=== PATIENT | female | born 1955 | race Caucasian/White ===

== ENCOUNTER 2017-02-24 17:31 | Emergency (ER) | payer OTHER ==
[~2017-02-24] VITALS: Ht 165.1 cm; Wt 57.0 kg
[~2017-02-24 17:31] MED LIST: HYDR-762 PO; LEVO50TA71 PO
[2017-02-24 17:40] VITALS: Ht 165.1 cm; Wt 57.0 kg
[2017-02-24] MEDS ORDERED: BELLADONNA/PHENOBARBITAL TAB PO STA (20:05)
[2017-02-24] MEDS ORDERED: ONDANSETRON 4 MG INJ IV STA (20:05)
[2017-02-24] MEDS ORDERED: FAMOTIDINE 20 MG TAB PO STA (20:05)
[2017-02-24] MEDS ORDERED: SOD CHLORIDE 0.9% 1,000 ML IV STA (20:05)
[2017-02-24] MEDS ORDERED: LIDOCAINE/MYLANTA 40 ML BTL PO STA (20:05)
[2017-02-24 20:32] LABS: ALBUMIN 4.4 g/dl (3.3-4.9); ALBUMIN/GLOBULIN RATIO 1.25; BILIRUBIN,INDIRECT 1.5 mg/dl (0-1.1); BILIRUBIN,TOTAL 1.5 mg/dl (0.2-1.3); CALCIUM 9.9 mg/dl (8.4-10.2); CREATININE 0.81 mg/dl (0.44-1.00); POTASSIUM 4.5 mmol/L (3.5-5.1); TOTAL PROTEIN 7.9 g/dl (6.1-8.1)
[2017-02-24 20:45] LABS: ADD UMIC YES; UR ASCORBIC ACID NEGATIVE (NEGATIVE); UR BILIRUBIN (Dip) NEGATIVE (NEGATIVE); UR BLOOD (Dip) 2+ mg/dL (NEGATIVE); UR CLARITY CLEAR (CLEAR); UR COLOR YELLOW (YELLOW); UR GLUCOSE (Dip) NEGATIVE (NEGATIVE); UR KETONES (Dip) 1+ mg/dL (NEGATIVE); UR LEUKOCYTE ESTERASE (Dip) NEGATIVE Leu/ul (NEGATIVE); UR MUCUS FEW /HPF (NONE SEEN); UR NITRITE (Dip) NEGATIVE (NEGATIVE); UR RBC 26 /HPF (0-5); UR SPECIFIC GRAVITY (Dip) 1.024 (1.003-1.030); UR TOTAL PROTEIN (Dip) NEGATIVE (NEGATIVE); UR UROBILINOGEN (Dip) 1+ mg/dL (NEGATIVE)
[2017-02-24 20:46] LABS: HEMATOCRIT 45.2 % (37.0-47.0); MEAN CORPUSCULAR HEMOGLOBIN 29.9 pg (29.0-33.0); MEAN CORPUSCULAR HGB CONC 33.2 g/dl (32.0-37.0); MEAN CORPUSCULAR VOLUME 90.2 fl (82.0-101.0); MEAN PLATELET VOLUME 9.4 fl (7.4-10.4); PLATELET COUNT 181 10^3/UL (140-415); RED BLOOD COUNT 5.01 10^6/ul (4.20-5.40); RED CELL DISTRIBUTION WIDTH 12.3 % (11.5-14.5); WHITE BLOOD COUNT 10.7 10^3/ul (4.8-10.8)
[2017-02-24 20:47] LABS: POSITIVE DIFF @See below
[2017-02-24] MEDS ORDERED: ONDA4TAB8 PO (20:55)
[2017-02-24] MEDS ORDERED: MAG355OR14 PO (20:55)
[2017-02-24 21:45] LABS: PLATELET ESTIMATE NORMAL
[2017-02-24 21:51] VITALS: BP 158/97; PULSE 98; RESP 16
--- NOTE | 2017-02-24 23:23 | ERD ---
ER Documentation Chief Complaint Chief Complaint Complains of vomiting and abdominal pain x 3 days HPI 61-year-old woman presents with abdominal cramping and a few episodes of clear nonbloody nonbilious emesis and nausea 2 days, symptoms began shortly after eating chocolate cake which she states was left outside and poorly stored. She states she also had one episode of loose stool without blood or mucus. She states the abdominal pain has improved although she remains nauseous. She denies fevers or chills, no anorexia, no chest pain or shortness of breath, no dysuria. ROS All systems reviewed and are negative except as per history of present illness. Medications Home Meds Active Scripts Mag Hydrox/Al Hydrox/Simeth (Maalox Advanced Suspension) 355 Ml Oral.susp, 2 TSP PO TID for PAIN AND/OR INFLAMMATION, #24 OZ Prov:KEVIN HERNANDEZ MD 02/24/17 Ondansetron Hcl* (Zofran*) 4 Mg Tablet, 4 MG PO Q8H Y for NAUSEA AND/OR VOMITING , #15 TAB Prov:KEVIN HERNANDEZ MD 02/24/17 Hydrocodone Bit-Acetaminophen* (Garland*) 10-325 Mg Tablet, 1 TAB PO Q6 Y for PAIN , #20 TAB Prov:COLLIN HAGEN 10/05/15 Reported Medications Levothyroxine Sodium* (Levoxyl*) 50 Mcg Tablet, 50 MCG PO BEFORE BREAKFAST, #30 TAB 10/05/15 Allergies Allergies: Coded Allergies: No Known Drug Allergies (Verified Allergy, Unknown, 10/05/15) PMhx/Soc Hypothyroidism History of Surgery: Yes (ankle sx 2015) Anesthesia Reaction: No Hx Neurological Disorder: No Hx Respiratory Disorders: No Hx Cardiac Disorders: No Hx Psychiatric Problems: No Hx Miscellaneous Medical Probl: Yes (hypothyroid) Hx Alcohol Use: No Hx Substance Use: No Hx Tobacco Use: No Smoking Status: Never smoker FmHx Family History: No diabetes Physical Exam Vitals Vital Signs Date Time Temp Pulse Resp B/P Pulse Ox O2 Delivery O2 Flow Rate FiO2 02/24/17 21:51 98 16 158/97 98 Room Air 02/24/17 17:40 99.5 92 20 164/95 95 Physical Exam GENERAL: Well-developed, well-nourished, well-hydrated, in no apparent distress , looks nontoxic in appearance HEENT: Moist mucous membranes, pink conjunctiva, no cervical spine tenderness or step-off deformities, no goiter, no jaundice or icterus, extraocular movements intact without pain. No submandibular induration, and no pharyngeal erythema NEURO: Alert and oriented 3, cranial nerves II through XII intact bilaterally, pupils equal round reactive to light, no focal deficits or facial asymmetry, sensation intact distally Strength 5/5 in upper and lower extremities bilaterally CARDIAC: Regular rate and rhythm, no murmurs rubs or gallops LUNGS: Clear bilaterally no wheezing crackles or stridor ABDOMEN: Soft nontender, no guarding, no rigidity, no rebound, no psoas sign no obturator sign. Normoactive bowel sounds SKIN: Warm and dry to touch, no abrasions, contusions, or hematomas, no lacerations, no ecchymosis, no target lesions, and without ulcers EXTREMITIES: No clubbing cyanosis or edema, calves are bilaterally symmetrical, no Homans sign, no popliteal cord sign. Distal pulses equal and bilateral PSYCH: Normal affect without agitation or irritability Result Diagram: 02/24/17201202/24/172012 Results 24 hrs Laboratory Tests Test 02/24/17 20:13 02/24/17 20:28 White Blood Count 10.710^3/ul Red Blood Count 5.0110^6/ul Hemoglobin 15.0g/dl Hematocrit 45.2% Mean Corpuscular Volume 90.2fl Mean Corpuscular Hemoglobin 29.9pg Mean Corpuscular Hemoglobin Concent 33.2g/dl Red Cell Distribution Width 12.3% Platelet Count 45021^3/UL Mean Platelet Volume 9.4fl Segmented Neutrophils % (Manual) 94% Band Neutrophils % (Manual) 6% Nucleated Red Blood Cells % 0.0/100WBC Neutrophils # (Manual) 10.110^3/ul Band Neutrophils # 0.610^3/ul Platelet Estimate NORMAL Sodium Level 139mmol/L Potassium Level 4.5mmol/L Chloride Level 100mmol/L Carbon Dioxide Level 28mmol/L Anion Gap 16 Blood Urea Nitrogen 17mg/dl Creatinine 0.81mg/dl Glucose Level 104mg/dl Calcium Level 9.9mg/dl Total Bilirubin 1.5mg/dl Direct Bilirubin 0.00mg/dl Indirect Bilirubin 1.5mg/dl Aspartate Amino Transf (AST/SGOT) 56IU/L Alanine Aminotransferase (ALT/SGPT) 65IU/L Alkaline Phosphatase 111IU/L Total Protein 7.9g/dl Albumin 4.4g/dl Globulin 3.50g/dl Albumin/Globulin Ratio 1.25 Lipase 65U/L Urine Color YELLOW Urine Clarity CLEAR Urine pH 5.0 Urine Specific [place] 1.024 Urine Ketones 1+mg/dL Urine Nitrite NEGATIVEmg/dL Urine Bilirubin NEGATIVEmg/dL Urine Urobilinogen 1+mg/dL Urine Leukocyte Esterase NEGATIVELeu/ul Urine Microscopic RBC 26/HPF Urine Microscopic WBC 1/HPF Urine Mucus FEW/HPF Urine Hemoglobin 2+mg/dL Urine Glucose NEGATIVEmg/dL Urine Total Protein NEGATIVEmg/dl Current Medications Medications (Trade) Dose Ordered Sig/Wilner Route PRN Reason Start Time Stop Time Status Last Admin Dose Admin Sodium Chloride (NS) 1,000 ml @ 1,000 mls/hr Q1H STAT IV 02/24/17 20:05 02/24/17 21:04 DC 02/24/17 20:18 Ondansetron HCl (Zofran Inj) 4 mg ONCE STAT IV 02/24/17 20:05 02/24/17 20:06 DC 02/24/17 20:18 Famotidine (Pepcid) 40 mg ONCE STAT PO 02/24/17 20:05 02/24/17 20:06 DC 02/24/17 20:19 Miscellaneous Medication (Gi Cocktail (2)) 40 ml ONCE STAT PO 02/24/17 20:05 02/24/17 20:06 DC 02/24/17 20:19 Belladonna/ Phenobarbital () 2 tab ONCE STAT PO 02/24/17 20:05 02/24/17 20:06 DC 02/24/17 20:19 Procedures/MDM IV line was established patient was placed on air sampling and monitoring rhythm strip revealed a sinus rhythm at about 80 bpm with upright P and T waves. Patient was afebrile I administered 1 L normal saline intravenously, Zofran 4 mg IV, GI cocktail 30 cc p.o., famotidine 40 mg p.o. CBC and electrolytes were normal, liver function tests were normal. Urine analysis was negative for infection. Patient symptoms improved, she has not vomited and she is able to tolerate p.o. Abdominal examination was repeated by me after initial evaluation and just prior to discharge. Her belly remained soft she has no psoas sign, no McBurney' s point tenderness. I do not suspect acute appendicitis, instead I suspect food poisoning given her exposure to poorly stored food. I did give her and her who is at the bedside instructions to return. Differential diagnoses considered, included but not limited to acute coronary syndrome, pulmonary embolism, aortic dissection, abdominal aortic aneurysm, sepsis, stroke, meningitis, encephalitis, pneumonia, appendicitis, cholecystitis , bowel obstruction, pyelonephritis, nephrolithiasis, cystitis, as well as metabolic, hematologic, and electrolyte abnormalities. As well as abscess, cellulitis, fractures, and dislocations. Patient feels much better at this time, and vital signs are normal, symptoms have improved. I did give strict instructions to return to the ED if symptoms continue or worsen, patient will otherwise follow-up with primary care physician. Patient understood instructions and agreed to plan. Disclaimer: Inadvertent spelling and grammatical errors are likely due to EHR/ dictation software use and do not reflect on the overall quality of patient care. Also, please note that the electronic time recorded on this note does not necessarily reflect the actual time of the patient encounter. Departure Diagnosis: Primary Impression: Vomiting and diarrhea Additional Impressions: Abdominal pain Abdominal location: generalized Qualified Code: R10.84 - Generalized abdominal pain Food poisoning Encounter type: initial encounter Injury intent: accidental or unintentional Qualified Code: T62.91XA - Food poisoning, accidental or unintentional, initial encounter Condition: Good Patient Instructions: Food Poisoning (6Yr-Adult), Vomiting (6Y-Adult) KEVIN HERNANDEZ MD Feb 24, 2017 23:22
== END 2017-02-24 22:00 | disposition home or self-care (01) ==
LOC: E/R 17:31
DX: R11.10 Vomiting, unspecified (principal); R19.7 Diarrhea, unspecified; R10.84 Generalized abdominal pain; T62.91XA Toxic effect of unspecified noxious substance eaten as food, accidental (unintentional), initial encounter; E03.9 Hypothyroidism, unspecified
CPT/HCPCS: 80053; 81001; 83690; 85025; 96374; 99284; J2405; J7030